=== PATIENT | male | born 1985 | race Caucasian/White ===

== ENCOUNTER → 2020-04-16 | Outpatient (CLI) | payer OTHER ==
[~2020-04-16] MED LIST: CONTRAST GIVEN. MC PRN; GADOTERATE 5 MMOL/10ML VIAL. INT ART ONE; IOHEXOL 300 MG/ML 50 ML VIAL. INT ART ONE; LIDOCAINE 1% Multi-Dose 20 ML VIAL. ID ONE
--- NOTE | 2020-04-16 17:36 | KCIC ---
Fluoroscopically guided injection of the left shoulder 04/16/2019 Clinical history: Left shoulder pain. Technique: After the risks and benefits of the procedure were explained to the patient, written infor med consent was obtained. The anterior skin surface of the left shoulder was prepped and draped in st erile fashion. 1% lidocaine was used as local anesthetic. Under fluoroscopic guidance, a 22-gauge spi nal needle was advanced into the anterior aspect of the left glenohumeral joint. Intra-articular posi tion of the needle was confirmed with 5 cc of Omnipaque 300. Following this 15 cc of a solution conta ining containing 20 cc of normal saline and 0.1 cc of CLARISCAN were injected into the left glenohume ral joint. Following this the needle was removed and hemostasis achieved at the puncture site. A ster ile bandage was placed on the skin puncture site. The patient tolerated the procedure well and there were no immediate complications. The total fluoroscopic time for this study was 32 seconds. 1 digital fluoroscopic captured radiograph of the left shoulder was obtained. The patient was taken to MRI for further imaging. Impression: Technically successful injection of the left shoulder joint under fluoroscopy to benoit scott a MR arthrogram as outlined above. Electronically signed by: Liborio Morales MD (04/16/2020 5:34 PM) [id number]
--- NOTE | 2020-04-17 11:30 | KCIC ---
STUDY: MRI arthrogram of the left shoulder INDICATION: Previous left shoulder surgery. Recent exacerbation of left shoulder pain from a lifting injury. Pain and popping. Limited range of motion. COMPARISON: Left shoulder radiographs 02/29/2020 TECHNIQUE: Multiplanar MR imaging of the left shoulder performed after the intra-articular injection of contrast material. The injection portion of the procedure is detailed in a separate report. FINDINGS: AC joint: No significant AC joint arthrosis. No extension of injected contrast into the subacromial s ubdeltoid bursa. Rotator cuff: No rotator cuff tear is identified. Mild tendinosis localizing to the anterior aspect o f the supraspinatus. Rotator cuff muscular bulk and signal is within normal limits. Labrum: Irregular and blunted posterior half of the labrum. This configuration extends along the infe rior aspect of the labrum as well. No discrete tear at the anterior/inferior labrum. Long head biceps tendon: Signal heterogeneity along the humeral shaft suggestive of prior long head b iceps tenodesis. Cartilage: No high-grade or full-thickness chondral defect is identified. Bones: No acute fracture or focally aggressive marrow signal abnormality. Miscellaneous: The inferior glenohumeral ligament complex is intact. There is slight posterior decent ralization of the humeral head relative to the glenoid and outward bowing of the posterior joint caps ule. Unremarkable axillary soft tissues. Faint T2 signal elevation at the rotator interval. Impression: 1. Irregular morphology and blunting along the entire posterior half of the labrum and extending to i nvolve the inferior aspect as well. No discrete tear at the anterior/inferior labrum. A component of this appearance could be related previous injury/surgery though recurrent tearing or labral degenerat ion should be considered. Note is also made that there is slight posterior decentralization of the hu meral head relative to the glenoid and a mildly patulous posterior joint capsule. Correlate for sympt oms of multidirectional instability which could also contribute to the appearance of the posterior la yue. 2. No discrete rotator cuff tear. Mild tendinosis at the anterior aspect of the supraspinatus. Normal rotator cuff muscular bulk and signal. 3. Sequela of long head biceps tenodesis. 4. Faint T2 signal elevation at the rotator interval. This is nonspecific though a manifestation of m ild adhesive capsulitis is possible. Electronically signed by: STARLA CHACKO MD (04/17/2020 11:27 AM) [id number]
== END | disposition home or self-care (01) ==
LOC: KCIC 13:23
PROVIDERS: ATTEND Orthopaedic Surgery
DX: M25.512 Pain in left shoulder (principal); Z79.899 Other long term (current) drug therapy
CPT/HCPCS: 23350; 73222; 77002; A9575; J3490; Q9967; 73040

== ENCOUNTER → 2020-05-25 | Outpatient (CLI) | payer OTHER ==
[~2020-05-25] MED LIST changes: -CONTRAST GIVEN. MC PRN; -GADOTERATE 5 MMOL/10ML VIAL. INT ART ONE; -IOHEXOL 300 MG/ML 50 ML VIAL. INT ART ONE; -LIDOCAINE 1% Multi-Dose 20 ML VIAL. ID ONE; +OXYC1TAB19 PO
== END ==
LOC: LAB 13:27
PROVIDERS: ATTEND Orthopaedic Surgery
DX: Z01.812 Encounter for preprocedural laboratory examination (principal); S43.432A Superior glenoid labrum lesion of left shoulder, initial encounter; Z20.822 Contact with and (suspected) exposure to COVID-19; X58.XXXA Exposure to other specified factors, initial encounter; Y93.89 Activity, other specified; Y92.89 Other specified places as the place of occurrence of the external cause; Y99.8 Other external cause status
CPT/HCPCS: U0003

== ENCOUNTER 2020-05-29 07:21 | Day surgery (SDC) | payer OTHER ==
[~2020-05-29] VITALS: Ht 208.3 cm; Wt 83.5 kg
[~2020-05-29 07:21] MED LIST changes: +EPINEPHrine VIAL 30 MG/30 ML VIAL ONE; -OXYC1TAB19 PO
[2020-05-29] MEDS ORDERED: IV RINGERS,LACTATED 1000ML 1,000 ML IV SCH ×2 (07:45→08:15)
[2020-05-29] MEDS ORDERED: fentaNYL PF VIAL 100 MCG/2 ML VIAL ONE (07:47)
[2020-05-29] MEDS ORDERED: ROPIVacaine 0.5% PF 20 ML VIAL. ONE (07:47)
[2020-05-29] MEDS ORDERED: MIDAZOLAM HCL/PF 2 MG/2 ML VIAL. ONE (07:47)
[2020-05-29] MEDS ORDERED: DEXAMETHASONE SOD PHOS 20 MG/5 ML VIAL. ONE (07:48)
[2020-05-29] MEDS ORDERED: HYDROmorphone 2 MG/ML VIAL IVP PRN (08:15)
[2020-05-29] MEDS ORDERED: MORPHINE SULFATE 2 MG/ML VIAL. IVP PRN (08:15)
[2020-05-29] MEDS ORDERED: PROCHLORPERAZINE 10 MG/2 ML VIAL. IVP PRN (08:15)
[2020-05-29] MEDS ORDERED: fentaNYL PF VIAL 100 MCG/2 ML VIAL IVP PRN ×2 (08:15)
[2020-05-29] MEDS ORDERED: ROCURONIUM 50 MG/5 ML VIAL. ONE (08:21)
[2020-05-29] MEDS ORDERED: LIDOCAINE 2% PF 5 ML VIAL. ONE (08:22)
[2020-05-29] MEDS ORDERED: DEXAMETHASONE SOD PHOS 4 MG/ML VIAL ONE (08:22)
[2020-05-29] MEDS ORDERED: PROPOFOL 10 MG/ML (20ML) VIAL. IV ONE (08:22)
[2020-05-29] MEDS ORDERED: GLYCOPYRROLATE 1 MG/5 ML VIAL. ONE (09:09)
[2020-05-29] MEDS ORDERED: SEVOFLURANE > 120 MINUTES. IH ONE (09:11)
[2020-05-29] MEDS ORDERED: NEOSTIGMINE METHYLSULFATE 5 MG/5 ML SYRINGE. ONE (09:13)
[2020-05-29] MEDS ORDERED: ePHEDrine PF IN SALINE 50 MG/10 ML SYRINGE. IV ONE (09:42)
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
[2020-05-29] MEDS ORDERED: SEVOFLURANE 61 TO 120 MINUTES. IH ONE (10:30)
[2020-05-29] MEDS ORDERED: OXYC1TAB19 PO (11:20)
--- NOTE | 2020-05-29 11:26 | DISCH ---
DISCHARGE INSTRUCTIONS Condition on Discharge Condition on Discharge: Stable Activity After Discharge Activity Instructions for Disc: Other, see below (May remove immobilizer for fine motor use with elbow at side only no lifting pushing or pulling, may grasp silverware eat write type etc.) Weight Bearing Status after Di: Non weight bearing Diet after Discharge Diet after Discharge: Regular Wound Incision Care Wound/Incision Care: Ice to area for comfort, Change dressing (Remove dressing in 2 days may then shower, may hang arm down like a pendulum to wash under arm ,report any ongoing drainage or redness) Contacting the DRHeather after DC Call your doctor for: Concerns you may have Follow-Up Follow up with: Dr. Rosenthal 1 week Treatment/Equipment after DC Comment: No PT until 5 wks postop, will instruct at f/u RICK ROSENTHAL MD May 29, 2020 11:26
[2020-05-29 11:30] VITALS: BP 132/85
--- NOTE | 2020-05-29 14:18 | PDOC4 ---
Operative Note Operative Note Date of surgery: 05/29/2020 Preoperative diagnosis: Right shoulder labral tear Postoperative diagnosis: Right shoulder anterior instability with additional posterior labral fraying Operative procedure: Right shoulder arthroscopic Bankart repair Surgeon: Galo Spike Machine Feeder: Romain foley assist Anesthesia: General plus scalene block Estimated blood loss: 5 cc Complications: None Operative indications: Please see my orthopedic clinic note for detailed operative indications and note that I had covered with him the expected findings of a labral tear and the most likely outcome of labral repair, the plan to address other pathology as necessary in the shoulder and the risks benefits postoperative course including the possibility of infection nerve or blood vessel damage continued pain nonhealing medical or other anesthetic complications among others all his questions were answered he wishes to proceed with surgical evaluation and treatment. Operative text: Patient was identified procedure verified patient placed in the supine position on the operating table. After adequate amounts of general anesthesia plus a pre-existing scalene block were obtained he was placed decubitus position left side up with the beanbag and all bony prominences were well-padded. Left shoulder was examined under anesthesia found to have full r domonique of motion and showed isolated anterior instability. The left shoulder was then prepped and draped in standard sterile fashion and placed in the arthroscopic arm small with a total of 10 pounds of traction. After timeout was performed patient procedure identified and verified a standard posterior portal was established an anterior portal established using spinal needle local ization and the shoulder joint was systematically examined. Glenohumeral joint cartilage was noted to be in good condition. He has obvious anterior-inferior labral deficit that is off the face and he has significant capsular laxity anterior-inferior. He does have fraying of the posterior labrum which was debrided back to stable tissue and not noted to be from the posterior glenoid or causing any type of instability. He had a previous biceps tenodesis subscapularis supraspinatus infraspinatus tendon insertions are intact and while there is a normal bare area of the humerus he has some slight scuffing of the cartilage below that constituting a start of a Hill-Sachs lesion. Given his clinical presentation examination under anesthesia with the anterior inferior stability demonstrated, I elected to proceed with a arthroscopic Bankart repair as he had no bony deficit. A Linwood blade was used to separate the capsule from approximately the 2:00 to 7 o'clock position and arthroscopic shaver used to r oughen up the anterior glenoid to bleeding bony surface. Capsule was captured at approximately the 7 o'clock position and advanced to an anchor at the 5:30 position after placing juggernaut 1.5 mm soft anchors at the 530 and 430 positions on the glenoid face single loaded with #2 max braid suture.. These capsular plication's were then advanced using sliding locking knots backed up by alternating post half hitches to recreate an anterior inferior labral bumper. An additional suture was placed at approximately the 4 o'clock position and advanced to a max braid suture anchor at the 3 o'clock position and similarly secured with a nonsliding knot with alternating post half hitches. Labral bumper was well reapproximated and the capsular laxity sufficiently taken out to stabilize the shoulder with mild restriction of terminal range of motion external rotation and abduction and no engagement of the area which was starting the scuffing of a early Hill-Sachs lesion. Shoulder joint was drained of arthroscopic fluid portals closed with buried Vicryl and skin closure with nylon suture sterile dressings were applied he was placed in a shoulder immobilizer returned to recovery room in stable condition having tolerated procedure well. Romain sanz was present for the procedure and assisted in patient positioning prepping draping retraction closure and dressings RICK LAWSON MD May 29, 2020 14:18
== END 2020-05-29 12:15 | disposition home or self-care (01) ==
LOC: SURG 07:21
PROVIDERS: ATTEND Orthopaedic Surgery
DX: S43.401A Unspecified sprain of right shoulder joint, initial encounter (principal); S43.432A Superior glenoid labrum lesion of left shoulder, initial encounter; Z87.891 Personal history of nicotine dependence; Z79.899 Other long term (current) drug therapy; Z98.890 Other specified postprocedural states; X58.XXXA Exposure to other specified factors, initial encounter; Y93.89 Activity, other specified; Y92.89 Other specified places as the place of occurrence of the external cause; Y99.8 Other external cause status
CPT/HCPCS: 29806; 64415; A4565; A4930; C1713; J0171; J0690; J1100; J2250; J2704; J2710; J2795; J3010; J3490; A6454